=== PATIENT | female | born 1950 | race Caucasian/White ===

== ENCOUNTER 2016-06-23 17:04 | Emergency (ER) | payer MEDICARE, OTHER ==
[2016-06-23 17:53] LABS: BASOPHIL 0.9 % (0-2); EOSINOPHIL 2.7 % (0-7); HCT 37.3 % (37.0-47.0); HGB 12.7 g/dl (12.5-16.0); LYMPHOCYTE 34.3 % (15-48); MCH 30.6 pg (25.0-31.0); MCV 89.9 fL (78.0-100.0); MPV 10.8 fL (6.0-9.5); NEUTROPHIL 55.1 % (41-80); PLT 321 K/uL (150-400); RBC 4.15 M/uL (4.20-5.40); RDW 13.9 % (11.5-14.0); WBC 9.3 K/uL (4.0-10.5)
[2016-06-23 17:58] LABS: INR 1.47 (0.9-1.2); PROTHROMBIN TIME 17.3 SECONDS (11.7-14.0); PTT 43.6 SECONDS (23.2-31.4)
[2016-06-23 18:08] LABS: ALBUMIN 3.6 g/dL (3.4-4.8); BILIRUBIN - TOTAL 0.2 mg/dL (0.1-1.0); CREATININE 1.3 mg/dL (0.5-1.0); GLOBULIN (CALCULATION) 2.7 g/dL (2.2-4.2); POTASSIUM 3.9 mmol/L (3.5-5.1); TOTAL PROTEIN 6.3 g/dL (6.4-8.3)
== END 2016-06-23 20:27 | disposition other institution (70) ==
LOC: FER 17:04
PROVIDERS: Internal Medicine
DX: G45.0 Vertebro-basilar artery syndrome (principal); R27.0 Ataxia, unspecified; F17.200 Nicotine dependence, unspecified, uncomplicated
CPT/HCPCS: 36415; 70450; 71010; 80053; 84484; 85025; 85610; 85730; 93005